=== PATIENT | male | born 1965 | race Caucasian/White ===

== ENCOUNTER 2018-04-24 09:01 | Inpatient (IN) | payer OTHER ==
[2018-04-24 10:29] VITALS: BMI 24.1
--- NOTE | 2018-04-24 11:41 | HP ---
"CIWA Score Nausea/Vomitin Muscle Tremors: 4-Moderate,w/Arms Extend Anxiety: 3 Agitation: 2 Paroxysmal Sweats: No Perspiration Orientation: 1-Uncertain about Date Tacttile Disturbances: 0-None Auditory Disturbances: 0-None Visual Disturbances: 1-Very Mild Sensitivity Headache: 1-Very Mild CIWA-Ar Total Score: 14 - Admission Criteria OASAS Guidelines: Admission for Medically Managed Detox: Requires at least one of the followin. CIWA greater than 12 2. Seizures within the past 24 hours 3. Delirium tremens within the past 24 hours 4. Hallucinations within the past 24 hours 5. Acute intervention needed for co occurring medical disorder 6. Acute intervention needed for co occurring psychiatric disorder 7. Severe withdrawal that cannot be handled at a lower level of care (continued vomiting, continued diarrhea, abnormal vital signs) requiring intravenous medication and/or fluids 8. Patient presents the following: CIWA greater than 12 Admission Criteria Met: Admission criteria met Admission ROS [facility] - HPI Chief Complaint: I'm drinking too much, I need to stop, I get too sick if I try on my own Allergies/Adverse Reactions: Allergies Allergy/AdvReac Type Severity Reaction Status Date / Time No Known Drug Allergies Allergy Verified 04/24/18 10:47 History of Present Illness: 52 yo gentleman here for detox from alcohol. Patient accompanied by friend who aided and verified medical history - patient has tried to detox on his own (see below) with outpatient librium but keeps relapsing. Patient with history of alcohol related cirrhosis, esophageal varices and encephelopathy. Last time inpatient detox was [address] [facility]. He used to be an drug counselor. [facility]: Search Terms: rd [address]icia, 1965 Search Date: 04/24/2018 11:43:42 AM The Drug Utilization Report below displays all of the controlled substance prescriptions, if any, that your patient has filled in the last twelve months. The information displayed on this report is compiled from pharmacy submissions to the Department, and accurately reflects the information as submitted by the pharmacies. This report was requested by: Bev Cortez | Reference #: [id number] Others' Prescriptions Patient Name: Rd Galicia Date: 1965 Address: [address] [place], [place] [address] [address] Sex: Male Rx Written Rx Dispensed Drug Quantity Days Supply Prescriber Name 02/17/2018 02/17/2018 chlordiazepoxide 10 mg capsule 30 30 Sayda Kovacs MD 01/27/2018 01/28/2018 chlordiazepoxide 10 mg capsule 21 7 Sayda oKvacs MD 01/11/2018 01/12/2018 chlordiazepoxide 10 mg capsule 21 7 Sayda Kovacs MD 12/28/2017 12/28/2017 chlordiazepoxide 25 mg capsule 21 7 Sayda Kovacs MD 10/23/2017 11/04/2017 diazepam 5 mg tablet 60 30 Sayda Kovacs MD 09/03/2017 09/04/2017 diazepam 5 mg tablet 60 30 JaylenAlison MD 08/06/2017 08/10/2017 diazepam 5 mg tablet 60 30 JaylenAlison quinn MD 07/09/2017 07/09/2017 diazepam 5 mg tablet 60 30 Jaylen, Alison XAVIER 06/19/2017 06/25/2017 acetaminophen-cod #3 tablet 20 5 Noe Sotelo DDS 05/28/2017 05/30/2017 diazepam 5 mg tablet 60 30 JaylenAlison MD Exam Limitations: No Limitations - Ebola screening Have you traveled outside of the country in the last 21 days: No (N) Have you had contact with anyone from an Ebola affected area: No Have you been sick,other than usual withdrawal symptoms: No Do you have a fever: No - Review of Systems Constitutional: Loss of Appetite, Changes in sleep, Weakness EENT: reports: Blurred Vision, Hearing Loss Respiratory: reports: No Symptoms reported Cardiac: reports: No Symptoms Reported GI: reports: Nausea, Poor Appetite, Poor Fluid Intake, Indigestion, Abdominal cramping : reports: Frequency Musculoskeletal: reports: Joint Stiffness, Other (uses cane - right ankle with history of surgery) Integumentary: reports: Dryness Neuro: reports: Headache, Tremors Endocrine: reports: No Symptoms Reported Hematology: reports: No Symptoms Reported Psychiatric: reports: Judgement Intact, Mood/Affect Appropiate, Anxious Other Systems: Reviewed and Negative Patient History - Patient Medical History Hx Anemia: No Hx Asthma: Yes Hx Chronic Obstructive Pulmonary Disease (COPD): Yes Hx Cancer: No Hx Cardiac Disorders: No Hx Congestive Heart Failure: No Hx Hypertension: Yes Hx Hypercholesterolemia: Yes Hx Pacemaker: No HX Cerebrovascular Accident: No Hx Seizures: No Hx Dementia: No Hx Diabetes: No Hx Gastrointestinal Disorders: Yes (esophageal varices) Hx Liver Disease: Yes (cirrhosis - end stage) Hx Genitourinary Disorders: No Hx Sexually Transmitted Disorders: No Hx Renal Disease (ESRD): No Hx Thyroid Disease: No Hx Human Immunodeficiency Virus (HIV): No Hx Hepatitis C: No Hx Depression: Yes (no meds -) Hx Suicide Attempt: No Hx Bipolar Disorder: Yes (no med) Hx Schizophrenia: No Other Medical History: encepholopathy - Patient Surgical History Past Surgical History: Yes Hx Neurologic Surgery: No Hx Cataract Extraction: No Hx Cardiac Surgery: No Hx Lung Surgery: No Hx Breast Surgery: No Hx Breast Biopsy: No Hx Abdominal Surgery: Yes (esophogeal banding for varices) Hx Appendectomy: No Hx Cholecystectomy: No Hx Genitourinary Surgery: No Hx Section: No Hx Orthopedic Surgery: Yes (1999-rt femur juvencio, ankle surgery,2007-lrft meniscus repair) Hx Hysterectomy: No Anesthesia Reaction: No - PPD History Previous Implant?: Yes Documented Results: Negative w/proof Implanted On Prior [facility] Admission?: Yes Date: 08/04/13 PPD to be Administered?: Yes - Reproductive History Patient is a Female of Child Bearing Age (11 -55 yrs old): No (male) - Smoking Cessation Smoking history: Current every day smoker Have you smoked in the past 12 months: Yes Aproximately how many cigarettes per day: 10 Cigars Per Day: 0 Hx Chewing Tobacco Use: No Initiated information on smoking cessation: Yes 'Breaking Loose' booklet given: 04/24/18 (give on floor) - Substance & Tx. History Hx Alcohol Use: Yes Hx Substance Use: Yes Substance Use Type: Alcohol, Marijuana Hx Substance Use Treatment: Yes (detox [facility]) - Substances Abused Alcohol Route: Oral Frequency: Daily Amount used: 1.5 [place] Age of first use: 21 Date of Last Use: 04/24/18 Marijuana/Hashish Route: Smoking Frequency: Daily Amount used: $20 Age of first use: 20 Date of Last Use: 04/24/18 Family Disease History - Family Disease History Family Disease History: CA: Mother (alcohol,), Other: Father (alcohol, ), Mother, Sister (one ) Admission Physical Exam BHS - Vital Signs Vital Signs: Vital Signs - 24 hr 04/24/18 10:27 Temperature 96.2 F L Pulse Rate 70 Respiratory 20 Rate Blood Pressure 109/74 - Physical General Appearance: Yes: Nourished, Appropriately Dressed, Moderate Distress, Tremorous, Anxious HEENTM: Yes: EOMI, Hearing grossly Normal, Normocephalic, Normal Voice, Other ( tongue coated) Respiratory: Yes: No Respiratory Distress, Respiratory Distress, Wheezing Neck: Yes: No masses,lesions,Nodules Breast: Yes: Breast Exam Deferred Cardiology: Yes: Regular Rhythm, Regular Rate Abdominal: Yes: Soft Genitourinary: Yes: Frequency Back: Yes: Normal Inspection Musculoskeletal: Yes: Joint Stiffness, Other (right ankle with reduced ROM due to history of surgery) Extremities: Yes: Other (uses cane to walk) Neurological: Yes: Alert, Normal Mood/Affect, Normal Response Integumentary: Yes: Normal Color, Warm Lymphatic: Yes: Within Normal Limits - Diagnostic (1) Alcohol dependence with uncomplicated withdrawal Current Visit: Yes Status: Chronic (2) Cirrhosis Current Visit: Yes Status: Chronic Qualifiers: Hepatic cirrhosis type: alcoholic cirrhosis Ascites presence: without ascites Qualified Code(s): K70.30 - Alcoholic cirrhosis of liver without ascites (3) Encephalopathy chronic Current Visit: Yes Status: Chronic (4) Esophageal varices Current Visit: Yes Status: Acute Qualifiers: Esophageal varices type: secondary Esophageal varices bleeding: without bleeding Qualified Code(s): I85.10 - Secondary esophageal varices without bleeding (5) rt femur juvencio Current Visit: Yes Status: Active Cleared for Admission [facility] - Detox or Rehab [facility] Level of Care: Medically Managed Detox Regimen/Protocol: Not Applicable (ativan) [facility] Breath Alcohol Content Breath Alcohol Content: 0.187 Urine Drug Screen - Results Drug Screen Negative: No Urine Drug Screen Results: THC-Marijuana, BZO-Benzodiazepines Inpatient Rehab Admission - Rehab Decision to Admit Inpatient rehab admission?: No"
[2018-04-24] MEDS ORDERED: BISMUTH SUBSALICYLATE 524 MG/30 ML UD PO PRN (11:55)
[2018-04-24] MEDS ORDERED: MELATONIN 5 MG TABLETS PO PRN (11:55)
[2018-04-24] MEDS ORDERED: IBUPROFEN 400 MG TABLET (FP) PO PRN (11:55)
[2018-04-24] MEDS ORDERED: MENTHOL/PHENOL 1 EACH UD MM PRN (11:55)
[2018-04-24] MEDS ORDERED: NICOTINE 14 MG/24 HOURS TOPICAL PATCH TD PRN (11:55)
[2018-04-24] MEDS ORDERED: MAGNESIUM CITRATE 300 ML BOTTLE PO PRN (11:55)
[2018-04-24] MEDS ORDERED: LORazepam 1 MG TABLET PO PRN (11:55)
[2018-04-24] MEDS ORDERED: MAGNESIUM HYDROX 2400MG/30ML ORAL SUSPENSION 30 ML CUP PO PRN (11:55)
[2018-04-24] MEDS ORDERED: MAG HYDROX/AL HYDROX/SIMETH 30 ML UNIT-DOSE CUP PO PRN (11:55)
[2018-04-24] MEDS ORDERED: LORazepam 2 MG TABLET PO ONE (11:55)
[2018-04-24] MEDS ORDERED: hydrOXYzine PAMOATE 25 MG CAPSULE (FP) PO PRN (11:55)
[2018-04-24] MEDS ORDERED: METHOCARBAMOL 500 MG TABLET PO PRN (11:55)
[2018-04-24] MEDS ORDERED: ALBUTEROL SO4 8 GM HFA INHALER IH PRN ×2 (12:11→12:15)
[2018-04-24] MEDS: PANTOPRAZOLE 40 MG TABLET (FP) PO SCH (13:18)
[2018-04-24] MEDS ORDERED: ALBUTEROL SO4 2 MG TABLET PO SCH (14:00)
[2018-04-24] MEDS: NADOLOL 20 MG TABLET (FP) PO SCH (14:54)
[2018-04-24] MEDS: LACTULOSE 20 GM/30 ML UDC (FOR ORAL USE ONLY) PO SCH (14:58)
[2018-04-24] MEDS: TIOTROPIUM BROMIDE 2.5 MCG (SPIRIVA) RESPIMAT INHALER IH SCH (14:59)
[2018-04-24] MEDS: LORazepam 2 MG TABLET PO SCH ×2 (18:46→22:48)
[2018-04-24] MEDS: THIAMINE HCL 100 MG TABLET (FP) PO SCH (22:48)
[2018-04-24] MEDS: ATORVASTATIN CA 10 MG TABLET (FP) PO SCH (22:48)
[2018-04-24] MEDS: RIFAXIMIN 550 MG TABLET (UD) PO SCH (22:48)
[2018-04-25] MEDS: LORazepam 2 MG TABLET PO SCH ×2 (05:42→11:09)
[2018-04-25] MEDS: LACTULOSE 20 GM/30 ML UDC (FOR ORAL USE ONLY) PO SCH ×3 (11:02→22:47)
[2018-04-25] MEDS: RIFAXIMIN 550 MG TABLET (UD) PO SCH ×2 (11:03→22:49)
[2018-04-25] MEDS: PRENATAL VITAMINS W/ FOLIC ACID TABLET (FP) PO SCH (11:03)
[2018-04-25] MEDS: PANTOPRAZOLE 40 MG TABLET (FP) PO SCH (11:03)
[2018-04-25] MEDS: NADOLOL 20 MG TABLET (FP) PO SCH (11:03)
[2018-04-25 11:04] LABS: ALK PHOS 165 U/L (45-117); ANION GAP 6 MMOL/L (8-16); BLOOD UREA NITROGEN 8 mg/dL (7-18); CALCIUM 8.1 mg/dL (8.5-10.1); CHLORIDE 106 mmol/L (98-107); CO2 28 mmol/L (21-32); CREATININE 0.7 mg/dL (0.55-1.3); GLUCOSE,RANDOM 117 mg/dL (74-106); POTASSIUM 3.4 mmol/L (3.5-5.1); SGOT/AST 34 U/L (15-37); SGPT/ALT 19 U/L (13-61); SODIUM 140 mmol/L (136-145); TOT PROT 7.1 g/dl (6.4-8.2)
[2018-04-25] MEDS: TIOTROPIUM BROMIDE 2.5 MCG (SPIRIVA) RESPIMAT INHALER IH SCH (11:04)
[2018-04-25 11:24] LABS: HEMATOCRIT 29.4 % (35.4-49); HEMOGLOBIN 9.3 GM/dL (11.7-16.9); MCH 22.9 pg (25.7-33.7); MCHC 31.7 g/dl (32.0-35.9); MEAN CELL VOLUME 72.3 fl (80-96); MEAN PLT VOLUME 9.2 fl (7.5-11.1); PLATELET COUNT 78 K/MM3 (134-434); RBC 4.07 M/mm3 (4.00-5.60); RDW 18.5 % (11.9-15.9); WHITE BLOOD COUNT 2.1 K/mm3 (4.0-10.0)
[2018-04-25] MEDS ORDERED: ALBUTEROL SO4 8 GM HFA INHALER IH PRN (13:10)
--- NOTE | 2018-04-25 13:27 | PN ---
[facility] CIWA - CIWA Score Nausea/Vomitin Muscle Tremors: 4-Moderate,w/Arms Extend Anxiety: 4-Mod. Anxious/Guarded Agitation: 4-Moderately Restless Paroxysmal Sweats: 3 Orientation: 0-Oriented Tacttile Disturbances: 0-None Auditory Disturbances: 0-None Visual Disturbances: 0-None Headache: 0-None Present CIWA-Ar Total Score: 17 BHS Progress Note (SOAP) Subjective: Anxious, sweating, interrupted sleep Objective: 04/25/18 13:22 Last Vital Signs Temp Pulse Resp BP Pulse Ox 97.3 F L 68 18 139/82 04/25/18 09:37 04/25/18 09:37 04/25/18 09:37 04/25/18 09:37 Laboratory Tests 04/25/18 04/25/18 04/25/18 08:00 08:00 08:00 WBC 2.1 L RBC 4.07 Hgb 9.3 L Hct 29.4 L D MCV 72.3 L MCH 22.9 L MCHC 31.7 L RDW 18.5 H Plt Count 78 L D MPV 9.2 Sodium 140 Potassium 3.4 L Chloride 106 Carbon Dioxide 28 Anion Gap 6 L BUN 8 Creatinine 0.7 Creat Clearance w eGFR > 60 Random Glucose 117 H Calcium 8.1 L Total Bilirubin 1.0 AST 34 ALT 19 Alkaline Phosphatase 165 H Ammonia 132.60 H Total Protein 7.1 Albumin 3.0 L Labs reviewed: pancytopenia noted (low wbc, h/h, plt), K 3.4, alk phos 165, serum calcium 8.1, ammonia level 132.60 Assessment: 04/25/18 13:26 Withdrawal symptoms Noted with pancytopenia, mild hypokalemia, hypocalcemia, elevated alkaline phosphatase and hyperammonemia Plan: Continue detox Encouraged PO water hydration Pancytopenia: most likely due to chronic alcoholism, repeat CBC Mild hypokalemia: K Dur 40 Meq PO x 2 doses then 10mg PO daily, repeat serum K+ level on Thursday Hypocalcemia: calcium carbonate 650mg PO bid x 2 days, repeat level on Thursday Elevated alkaline phosphatase: repeat alk phos level Hyperammonemia: lactulose 30ml PO Tid x 4 days, repeat ammonia level on Thursday
[2018-04-25] MEDS ORDERED: POTASSIUM CHLORIDE TABS 20 MEQ TABLET.ER (FP) PO ONE ×2 (13:41→20:00)
--- NOTE | 2018-04-25 14:06 | CONSULT ---
[facility] Psychiatric Consult - Data Date of interview: 04/25/18 (Self-referred) Admission source: Self-referred Identifying data: Mr Bloom is a 52 years old single male, unemployed receiving SSD, domiciled seeking detox treatment for alcohol and cannabis Substance Abuse History: Reports history of alcohol and marijuana use. Refer to addiction counselor's summary for further information Medical History: Significant for history of bronchial asthma, hypertension, dyslipidemia, cirrhosis of the liver, history of multile surgeries(fracture right femur, left meniscus repair, banding for esophageal varices). Smokes 10 cigarettes daily Psychiatric History: Patient is well known to editorial writer from a previous admission in this facility in July 2013. Historical narrative remeins consistent. Reports that his only psychiatric contact was at [facility] in 2012 for alleged suicidal ideation. Told editorial writer that then, to avoid problem with his security control room officer due to dirty urine, he told him that he was suicidal. The security control room officer took him to [facility] where he was kept for a few days and was not prescribed any psychotropic medication. At present, reports doing well but sleeping poorly Physical/Sexual Abuse/Trauma History: Denies history of emotional, physical or sexual abuse as well as DV relationship. No service Additional Comment: Reports history of multiple previous arrests including 2 felony convictions. Denies Mental Status Exam - Mental Status Exam Alert and Oriented to: Time, Place, Person Cognitive Function: Fair Patient Appearance: Well Groomed Mood: Hopeful, Euthymic Affect: Appropriate Speech Pattern: Clear Voice Loudness: Normal Thought Process: Intact, Goal Oriented Thought Disorder: Not Present Hallucinations: Denies Suicidal Ideation: Denies Homicidal Ideation: Denies Insight/Judgement: Fair Sleep: Poorly Appetite: Good Muscle strength/Tone: Normal Gait/Station: Other (uses a cane as ambulatory aid) Psychiatric Findings - Problem List ([place] 1, 2,3) (1) Substance-induced sleep disorder Current Visit: Yes Status: Acute (2) Alcohol dependence with uncomplicated withdrawal Current Visit: Yes Status: Acute (3) Cannabis dependence Current Visit: Yes Status: Acute (4) Nicotine dependence Current Visit: No Status: Acute (5) rt femur juvencio Current Visit: Yes Status: Acute (6) Esophageal varices Current Visit: Yes Status: Resolved Qualifiers: Esophageal varices type: secondary Esophageal varices bleeding: without bleeding Qualified Code(s): I85.10 - Secondary esophageal varices without bleeding (7) Cirrhosis Current Visit: Yes Status: Chronic Qualifiers: Hepatic cirrhosis type: alcoholic cirrhosis Ascites presence: without ascites Qualified Code(s): K70.30 - Alcoholic cirrhosis of liver without ascites (8) Asthma Current Visit: No Status: Chronic (9) h/o left meniscus tear Current Visit: No Status: Active (10) Essential hypertension Current Visit: No Status: Chronic - Initial Treatment Plan Initial Treatment Plan: 1) Start Melatonin 5 mg po HS prn for insomnia. 2) Continue inpatient detoxification
[2018-04-25] MEDS: LORazepam 1 MG TABLET PO SCH ×2 (18:26→22:49)
[2018-04-25] MEDS: CALCIUM CARBONATE 650 MG TABLET PO SCH ×2 (18:26→22:47)
[2018-04-25] MEDS: THIAMINE HCL 100 MG TABLET (FP) PO SCH (22:49)
[2018-04-25] MEDS: ATORVASTATIN CA 10 MG TABLET (FP) PO SCH (22:49)
[2018-04-26] MEDS: LORazepam 1 MG TABLET PO SCH ×2 (05:47→11:20)
[2018-04-26] MEDS: LACTULOSE 20 GM/30 ML UDC (FOR ORAL USE ONLY) PO SCH ×3 (05:50→22:52)
[2018-04-26] MEDS: NADOLOL 20 MG TABLET (FP) PO SCH (11:05)
[2018-04-26] MEDS: TIOTROPIUM BROMIDE 2.5 MCG (SPIRIVA) RESPIMAT INHALER IH SCH (11:15)
[2018-04-26] MEDS: RIFAXIMIN 550 MG TABLET (UD) PO SCH ×2 (11:16→23:01)
[2018-04-26] MEDS: PRENATAL VITAMINS W/ FOLIC ACID TABLET (FP) PO SCH (11:16)
[2018-04-26] MEDS: PANTOPRAZOLE 40 MG TABLET (FP) PO SCH (11:16)
[2018-04-26] MEDS: POTASSIUM CHLORIDE TABS 20 MEQ TABLET.ER (FP) PO SCH (11:17)
[2018-04-26] MEDS: CALCIUM CARBONATE 650 MG TABLET PO SCH ×2 (11:18→23:00)
[2018-04-26] MEDS: FERROUS SO4 325 MG TABLET (FP) PO SCH ×2 (11:21→18:25)
[2018-04-26 12:40] LABS: BASO % 1.7 % (0-2.0); HEMOGLOBIN 10.5 GM/dL (11.7-16.9); LYMPH % 18.7 % (8-40); MCH 23.5 pg (25.7-33.7); MCHC 32.8 g/dl (32.0-35.9); MEAN CELL VOLUME 71.7 fl (80-96); MEAN PLT VOLUME 9.4 fl (7.5-11.1); MONO % 13.9 % (3.8-10.2); NEUT % 62.7 % (42.8-82.8); PLATELET COUNT 71 K/MM3 (134-434); RBC 4.47 M/mm3 (4.00-5.60); RDW 18.6 % (11.9-15.9); WHITE BLOOD COUNT 2.8 K/mm3 (4.0-10.0)
--- NOTE | 2018-04-26 14:05 | PN ---
[facility] CIWA - CIWA Score Nausea/Vomitin-No Nausea/No Vomiting Muscle Tremors: None Anxiety: 4-Mod. Anxious/Guarded Agitation: 0-Normal Activity Paroxysmal Sweats: 2 Orientation: 0-Oriented Tacttile Disturbances: 0-None Auditory Disturbances: 1-Very Mild Visual Disturbances: 3-Moderate Sensitivity Headache: 0-None Present CIWA-Ar Total Score: 10 BHS Progress Note (SOAP) Subjective: Anxious, Sweating, Fatigue. Objective: PATIENT A & O X 3. IN NO ACUTE DISTRESS. PATIENT DENIES ANY UNUSUAL BLEEDING (WHEN BRUSHING TEETH, NOSEBLEED, VISUALIZATION OF BLOOD IN URINE OR STOOL), ETC. PATIENT DENIES ANY KNOWN HISTORY OF ANEMIA, LOW WBC LEVEL, OR OF LOW PLATELET LEVEL. 04/26/18 14:08 Vital Signs Temperature 98.2 F 04/26/18 09:28 Pulse Rate 86 04/26/18 09:28 Respiratory Rate 17 04/26/18 09:28 Blood Pressure 129/71 04/26/18 09:28 O2 Sat by Pulse Oximetry (%) Laboratory Tests 04/25/18 04/25/18 04/25/18 08:00 08:00 08:00 WBC 2.1 L RBC 4.07 Hgb 9.3 L Hct 29.4 L D MCV 72.3 L MCH 22.9 L MCHC 31.7 L RDW 18.5 H Plt Count 78 L D MPV 9.2 Absolute Neuts (auto) Neutrophils % Lymphocytes % Monocytes % Eosinophils % Basophils % Nucleated RBC % Sodium 140 Potassium 3.4 L Chloride 106 Carbon Dioxide 28 Anion Gap 6 L BUN 8 Creatinine 0.7 Creat Clearance w eGFR > 60 Random Glucose 117 H Calcium 8.1 L Total Bilirubin 1.0 AST 34 ALT 19 Alkaline Phosphatase 165 H Ammonia 132.60 H Total Protein 7.1 Albumin 3.0 L RPR Titer 04/25/18 04/26/18 08:00 10:50 WBC 2.8 L RBC 4.47 Hgb 10.5 L Hct 32.0 L MCV 71.7 L MCH 23.5 L MCHC 32.8 RDW 18.6 H Plt Count 71 L MPV 9.4 Absolute Neuts (auto) 1.8 Neutrophils % 62.7 Lymphocytes % 18.7 Monocytes % 13.9 H Eosinophils % 3.0 Basophils % 1.7 Nucleated RBC % 0 Sodium Potassium Chloride Carbon Dioxide Anion Gap BUN Creatinine Creat Clearance w eGFR Random Glucose Calcium Total Bilirubin AST ALT Alkaline Phosphatase Ammonia Total Protein Albumin RPR Titer Nonreactive LABS NOTED. Assessment: 04/26/18 14:18 WITHDRAWAL SYMPTOMS. PANCYTOPENIA. HYPOKALEMIA. HYPERAMMONEMIA. HYPOCALCEMIA. 04/26/18 14:20 Plan: CONTINUE DETOX. FEOSOL, 325 MG PO TIDCM. RE-CHECK CBC AGAIN TOMORROW AM. CONTINUE LACTULOSE. CONTINUE CALCIUM SUPPLEMENT. CONTINUE K-DUR. REPEAT K, CA, AND AMMONIA LEVELS TO BE CHECKED AGAIN TOMORROW AM.
[2018-04-26] MEDS ORDERED: LORazepam 0.5 MG TABLET PO PRN (17:00)
[2018-04-26] MEDS: LORazepam 0.5 MG TABLET PO SCH ×2 (18:06→22:52)
[2018-04-26] MEDS: THIAMINE HCL 100 MG TABLET (FP) PO SCH (23:01)
[2018-04-26] MEDS: ATORVASTATIN CA 10 MG TABLET (FP) PO SCH (23:01)
[2018-04-27] MEDS: FERROUS SO4 325 MG TABLET (FP) PO SCH ×2 (07:39→12:31)
[2018-04-27] MEDS: LACTULOSE 20 GM/30 ML UDC (FOR ORAL USE ONLY) PO SCH ×2 (07:39→14:00)
[2018-04-27] MEDS: LORazepam 0.5 MG TABLET PO SCH ×2 (07:53→12:39)
[2018-04-27 09:15] VITALS: BP 124/59; PULSE 90; TEMP 97.9
--- NOTE | 2018-04-27 09:50 | PN ---
[facility] Progress Note Note: pt states he is feeling fine and has referrals for outpatient rehab and has good family support. d/c today.
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
[2018-04-27] MEDS: PANTOPRAZOLE 40 MG TABLET (FP) PO SCH (12:31)
[2018-04-27] MEDS: CALCIUM CARBONATE 650 MG TABLET PO SCH (12:31)
[2018-04-27] MEDS: RIFAXIMIN 550 MG TABLET (UD) PO SCH (12:31)
[2018-04-27] MEDS: PRENATAL VITAMINS W/ FOLIC ACID TABLET (FP) PO SCH (12:32)
[2018-04-27] MEDS: NADOLOL 20 MG TABLET (FP) PO SCH (12:32)
[2018-04-27] MEDS: TIOTROPIUM BROMIDE 2.5 MCG (SPIRIVA) RESPIMAT INHALER IH SCH (12:39)
[2018-04-27] MEDS: POTASSIUM CHLORIDE TABS 20 MEQ TABLET.ER (FP) PO SCH (12:39)
[2018-04-27 12:53] LABS: CALCIUM 9.4 mg/dL (8.5-10.1); POTASSIUM 3.4 mmol/L (3.5-5.1)
== END 2018-04-27 14:59 | disposition home or self-care (01) | DRG 775 ==
LOC: YASAS 09:01 → Y6N 11:00
PROVIDERS: ADMIT Surgery; ATTEND Surgery
PROC: HZ2ZZZZ Detoxification Services for Substance Abuse Treatment (ICD-10-PCS; principal; 2018-04-24)
DX: F10.230 Alcohol dependence with withdrawal, uncomplicated (principal); F12.20 Cannabis dependence, uncomplicated; F17.210 Nicotine dependence, cigarettes, uncomplicated; F16.10 Hallucinogen abuse, uncomplicated; F10.24 Alcohol dependence with alcohol-induced mood disorder; F10.282 Alcohol dependence with alcohol-induced sleep disorder; G40.909 Epilepsy, unspecified, not intractable, without status epilepticus; G93.49 Other encephalopathy; E72.20 Disorder of urea cycle metabolism, unspecified; I10 Essential (primary) hypertension; I85.10 Secondary esophageal varices without bleeding; K21.9 Gastro-esophageal reflux disease without esophagitis; K85.90 Acute pancreatitis without necrosis or infection, unspecified; K74.60 Unspecified cirrhosis of liver; R55 Syncope and collapse; J45.909 Unspecified asthma, uncomplicated; Z96.89 Presence of other specified functional implants
CPT/HCPCS: 36415; 80053; 82140; 82310; 84075; 84132; 85025; 85027; 86593